=== PATIENT | male | born 1975 | race African-American/Black ===

== ENCOUNTER 2021-03-28 22:34 | Inpatient (IN) | payer OTHER, SELFPAY ==
--- NOTE | ~2021-03-28 | XR_ITS ---
EXAMINATION: XR chest port-a-cath/central EXAM DATE: 03/30/2021 13:35 INDICATION: Dylon line placement. TECHNIQUE: Portable AP frontal chest x-ray was obtained. There is no prior study for comparison. FINDINGS: There is a right-sided IJ double lumen dialysis catheter, tip projecting over cavoatrial ju nction. The lungs are clear. There are no pleural effusions. Cardiac silhouette is prominent but ma gnified on this AP technique. There is no pneumothorax suspected. The bones and soft tissues are u nremarkable. IMPRESSION: No acute cardiopulmonary findings. Reviewed, dictated and finalized at location B.
--- NOTE | ~2021-03-28 | US_ITS ---
EXAMINATION: US renal BI EXAM DATE: 03/30/2021 16:34 INDICATION: Elevated creatinine. TECHNIQUE: Multiple grayscale and Doppler images of the kidneys were obtained (by a technologist who performed the scan) and subsequently reviewed. There is no prior study for comparison. FINDINGS: Incidental note made of hepatic steatosis. Right kidney: There is normal contour and echogenicity. It measures 11.0 x 5.8 x 5.1 centimeters. T here are no focal renal lesions identified. There is no hydronephrosis. Left kidney: There is normal contour and echogenicity. It measures 11.7 x 6.0 x 5.7 centimeters. Th ere are no focal renal lesions identified. There is no hydronephrosis. Bladder unremarkable. IMPRESSION: 1. Sonographically unremarkable kidneys. 2. Hepatic steatosis. Reviewed, dictated and finalized at location B.
[2021-03-28 22:43] VITALS: BP 192/108; PULSE 120; RESP 22; TEMP 36.5; O2SAT 95
[2021-03-28 22:47] LABS: Glucose Point of Care > 500 mg/dl (65-105)
--- NOTE | 2021-03-28 22:47 | ECG_ITS ---
Measurements Intervals [place] Rate: 117 P: 49 NH: 124 QRS: 36 QRSD: 98 T: -80 QT: 323 QTc: 451 Interpretive Statements SINUS TACHYCARDIA LEFT VENTRICULAR HYPERTROPHY AND ST-T CHANGE ST-T WAVE ABNORMALITY IN INFERIOR LEADS- CONSIDER ISCHEMIA ABNORMAL ECG Electronically Signed On 03-29-2021 6:57:20 CDT by Sai Grove D.O.
[2021-03-28] MEDS: INSULIN HUMAN REGULAR (*BKC) 100 UNITS/ML 12 UNITS IV PUSH (23:08)
[2021-03-28] MEDS: SODIUM CHLORIDE 0.9% IV 1,000 ML 150 ML IV CONT (23:09)
[2021-03-28 23:18] LABS: Add Urine Microscopic? YES; Appearance Urine Clear (Clear); Bilirubin Urine Negative (Negative); Blood Urine Negative (Negative); Color Urine Colorless (Yellow); Glucose Urine UA 3+ mg/dL (Negative); Ketones Urine Negative (Negative); Leukocyte Esterase Ur Negative LEU/UL (Negative); Mucus Urine Rare /lpf; Nitrate Urine Negative (Negative); Protein Urine Negative (Negative); Specific Grav Ur 1.021 (1.001-1.035); Urobilinogen Urine Negative mg/dL (<2.0); WBC Urine 0-3 /hpf
[2021-03-28 23:22] LABS: Basophils Percent Auto 0.8 % (0.2-1.2); Eosinophils Absolute Auto 0.1 K/mm3 (0-0.3); Hematocrit 37.4 % (42.0-52.0); Hemoglobin 13.6 g/dL (14.0-18.0); Immature Granulocyte Absolute 0.02 K/mm3 (0.00-0.031); Immature Granulocyte Percent A 0.4 % (0-0.5); Lymphocytes Absolute Auto 0.99 K/mm3 (0.9-3.2); Lymphocytes Percent Auto 19.3 % (18.3-44.2); Mean Corpuscular HGB Conc 36.4 g/dl (32-36); Mean Corpuscular Hemoglobin 29.7 pg (26-34); Mean Corpuscular Volume 81.7 fl (80-100); Mean Platelet Volume 10.9 fl (7.4-10.4); Monocytes Absolute Auto 0.3 K/mm3 (0.1-0.6); Monocytes Percent Auto 6.3 % (2.6-8.5); Neutrophils Absolute Auto 3.7 K/mm3 (1.3-6.7); Neutrophils Percent Auto 72.2 % (45.5-73.1); Platelet Count Result 325 k/mm3 (150-375); Red Blood Count 4.58 M/mm3 (4.6-6.20); Red Cell Distribution Width 14.5 % (11.5-14.5); White Blood Count 5.1 K/mm3 (4.5-10.0)
[2021-03-28 23:25] LABS: Hemoglobin A1C 11.7 % (<5.7)
[2021-03-28 23:38] VITALS: BP 161/90; PULSE 121; RESP 25; O2SAT 96
[2021-03-28] MEDS: LABETALOL HCL INJ 100 MG/20 ML VIAL 20 MG IV PUSH (23:40)
[2021-03-28 23:50] VITALS: BP 143/77; PULSE 102; RESP 19; O2SAT 96
[2021-03-28 23:54] LABS: Alveolar/Arterial O2 Gradient 40.8 mmHg; Base Excess ABG -1.8 mEq/l (+/-2.0); Fractional Inspired Oxygen 21 %; HCO3 ABG 23.2 mEq/l (22.0-26.0); Oxygen Content ABG 17.7 %vol (16.0-22.0); Oxygen Saturation ABG 90.6 % (95.0-100.0); Oxyhemoglobin 91.1 % THb (90.0-100.0); PCO2 ABG 40.6 mmHg (35.0-45.0); PO2 ABG 60.3 mmHg (80.0-100.0); PO2 FiO2 Ratio Arterial Blood 2.87 %; Total Hemoglobin 13.8 g/dL (12.0-18.0); pH ABG 7.375 (7.350-7.450)
[2021-03-28 23:58] LABS: Device ROOM AIR; Modified Allen's Test Pass; Site Drawn LEFT RADIAL
[2021-03-29] VITALS (21 sets, daily range): BP systolic 121–204; BP diastolic 72–117; PULSE 77–104; RESP 16–26; TEMP 36.7–37.4; O2SAT 96–100; BMI 39.6
[2021-03-29 00:15] LABS: Alanine Aminotransferase 33 U/L (4-50); Albumin Level 4.1 g/dL (3.5-5.1); Alkaline Phosphatase 131 U/L (38-126); Anion Gap 17 mmol/L (8-16); Aspartate Amino Transferase 30 U/L (17-59); Blood Urea Nitrogen 27 mg/dL (9-20); Calcium 9.5 mg/dL (8.4-10.2); Carbon Dioxide 19 mmol/L (22-30); Chloride 90 mmol/L (98-107); Estimated CRCL calculation 64 ml/min; Estimated Glomerular Filt Rate 54; Potassium 5.5 mmol/L (3.4-5.0); Sodium 126 mmol/L (137-145)
[2021-03-29 00:24] LABS: Glucose Point of Care > 500 mg/dl (65-105)
[2021-03-29 00:29] LABS: Glucose 967 mg/dL (75-110)
--- NOTE | 2021-03-29 00:32 | ED.GENADULT ---
HPI - General Adult General Chief complaint: Recheck/Abnormal Lab/Rx Stated complaint: high blood sugar Time Seen by Provider: 03/28/21 22:43 Source: patient and family Mode of arrival: ambulatory Limitations: no limitations History of Present Illness HPI narrative: 45-year-old here with complaints of marked weakness for past 2 weeks. He complains of increased thirst, urinating frequently. And loss of appetite. He states that he checked his blood sugar at home was found to be high. mentions that he is scheduled to see her primary doctor tomorrow. Patient has not seen in provider for last several years. Onset (ago): week(s) (2) Exacerbating factors: none Associated symptoms: loss of appetite and malaise Treatments prior to arrival: none Related Data Home Medications Medication Instructions Recorded Confirmed No Home Medications 03/28/21 Allergies Allergy/AdvReac Type Severity Reaction Status Date / Time Penicillins Allergy Fever Verified 03/28/21 23:08 Review of Systems Review of Systems: All systems reviewed & are unremarkable except as noted in HPI and below Constitutional: Constitutional: Reports no additional constitutional complaints Eyes: Eyes: Reports no additional eye complaints ENT: Reports system reviewed and no additional complaints, except as documented Cardiovascular: Cardiovascular: Reports no additional cardiovascular complaints Respiratory: Respiratory: Reports no additional respiratory complaints Gastrointestinal: Gastrointestinal: Reports no additional gastrointestinal complaints Musculoskeletal: Musculoskeletal: Reports no additional musculoskeletal complaints Neurologic: Reports system reviewed and no additional complaints, except as documented Exam Narrative: Exam Narrative: GENERAL: Well-appearing, well-nourished, and in no acute distress. HEAD: Normocephalic, atraumatic. EYES: PERRLA and EOMI. NECK: Supple. CHEST: Clear to auscultation. No respiratory distress. HEART: Regular rate and rhythm. No murmur heard. Normal peripheral pulses. ABDOMEN: Soft, nontender, nondistended, normal active bowel sounds. EXTREMITIES: Normal range of motion. No edema. SKIN: Warm, dry, no rash. NEURO: No focal deficits. Alert and oriented x3. PSYCH: Normal mood and affect. Course Course Emergency Course: Patient has found to have a high blood sugar here in the emergency room I have given him initial 12 units of IV insulin push started him on fluids however his blood pressure was significantly elevated I have given labetalol 10 mg IV which brought his pressure and heart rate. I discussed labs with the patient and the family. Will admit to the intensive care unit. Discussed with Dr. Jaimes agreed to admit. Vital Signs Vital signs: Vital Signs Temperature 36.5 C 03/28/21 22:43 Pulse Rate 120 H 03/28/21 22:43 Respiratory Rate 22 H 03/28/21 22:43 Blood Pressure 192/108 H 03/28/21 22:43 Pulse Oximetry 95 03/28/21 22:43 Temperature 36.5 C 03/28/21 22:43 Pulse Rate 102 H 03/28/21 23:50 Respiratory Rate 19 03/28/21 23:50 Blood Pressure 143/77 H 03/28/21 23:50 Pulse Oximetry 96 03/28/21 23:50 Medical Decision Making Vital Signs Vital Signs: Vital Signs Temperature 36.5 C 03/28/21 22:43 Pulse Rate 120 H 03/28/21 22:43 Respiratory Rate 22 H 03/28/21 22:43 Blood Pressure 192/108 H 03/28/21 22:43 Pulse Oximetry 95 03/28/21 22:43 Temperature 36.5 C 03/28/21 22:43 Pulse Rate 102 H 03/28/21 23:50 Respiratory Rate 19 03/28/21 23:50 Blood Pressure 143/77 H 03/28/21 23:50 Pulse Oximetry 96 03/28/21 23:50 Lab Data Result diagrams: 03/28/21 22:56 03/28/21 23:47 Labs: Lab Results 03/28/21 03/28/21 03/28/21 Range/Units 22:45 22:56 22:56 WBC (4.5-10.0) K/mm3 RBC (4.6-6.20) M/mm3 Hgb (14.0-18.0) g/dL Hct (42.0-52.0) % MCV (80-100) fl MCH (26-34) pg MCHC (32-36)
[2021-03-29 00:47] LABS: Beta-Hydroxybutyrate/Acetoacetate 0.91 mmol/L (0.02-0.27)
[2021-03-29] MEDS: INSULIN HUMAN REGULAR (*BKC) 100 UNITS in SODIUM CHLORIDE 0.9% IV 99 ML 18.1 UNITS IV CONT (01:10)
[2021-03-29] MEDS: SODIUM CHLORIDE 0.9% IV 1,000 ML 999 ML IV CONT ×3 (01:19→21:46)
--- NOTE | 2021-03-29 01:45 | ADMGEN ---
This patient, Rico Brar, was admitted to Intensive Care Unit-8. Patient/family oriented to hospital policies and general routines including ID bracelet, bed and alarms, visiting hours, pain management, procedures, bathroom and other care routines, personal items, smoking policy, room service/diet, and visiting hours. Information on how to activate the Rapid Response Team has been discussed. Patient/Family are encouraged to report perceived risks to care and to ask questions if they do not understand what they are told or what they should do.
--- NOTE | 2021-03-29 02:15 | PM.IMHP ---
H&P: HPI History of Present Illness Date/Time: 03/29/21 03:00 Chief Complaint: elevated blood sugar Narrative: 45-year-old male with past medical history of obesity, and hypertension who presented to the ER after a checked his sugars as outpatient and they were found to be high. He reports that he has been having about 10 days of increased urination, fatigue, and severe dry mouth. This been accompanied by some blurry vision And loss of appetite. He reports that he cannot get enough fluid to drink. He has been drinking water and Gatorade. He does not have diabetes but borrowed a glucometer and his glucoses read as high on the monitor. He subsequently came into the ER for evaluation. He reports that he has not seen a primary care physician in several years. He had an appointment tomorrow for a new patient appointment. he had not seen a doctor in several years. The last brigette solid doctor was for a follow-up appointment high blood pressure. He has not been taking any antihypertensives at home. When he arrived to the ER his blood pressures were markedly elevated to 192/108. He has a significant family history of diabetes on both sides of his family. He has been obese for quite some time. He reports that his weight is usually around 275 lb. Today he weighed about 10 lb less than usual. He thinks that this is due to dehydration. He has not had any nausea or vomiting. He denies any headache . He has not had any nausea or vomiting. He does report occasional intermittent chest pain that occurs usually while he is at rest. The chest pain has not occurred in the last several weeks. The pain is usually relieved when he gets up and moves. He thinks that the pain usually occurs after he eats. he has had increased urinary frequency but denies any dysuria or hematuria. He does have occasional erectile dysfunction. He has been having some intermittent loose stools over recent weeks. He denies any numbness, tingling or paresthesias of his hands and feet. His girlfriend does tell him that he snores quite loudly and that he will often stop breathing and gasps for air at night. He denies any daytime fatigue or sleepiness. He has not noticed any lower extremity swelling, orthopnea or paroxysmal nocturnal dyspnea. He has not had any cough or congestion or upper respiratory symptoms. Patient's blood pressures improved after he received 20 mg of IV labetalol. Review of Systems Review of Systems: Narrative: 12 systems were reviewed with pertinent positives and negatives per HPI. Except as documented in the HPI, all other systems were reviewed and are negative. [facility] Past Medical History Medical History (Updated 03/29/21 @ 04:10 by Kitty Jaimes DO) Essential hypertension Obesity Surgical History Surgical History (Updated 03/29/21 @ 04:10 by Kitty Jaimes DO) History of laparoscopic cholecystectomy (~2004) Family History Family History (Updated 03/29/21 @ 04:11 by Kitty Jaimes DO) Mother , age 69 Hypertension Cerebrovascular accident Father Hypertension Diabetes mellitus Heart disease Leukemia, Onset Age: 68 of a heart attack as a complication of leukemia treatment. Social History Social History (Updated 03/29/21 @ 04:33 by Kitty Jaimes DO) Social History: He lives in [place] with his long-term girlfriend. They have 2 children together ages 14 and 15. Has has a stepchild. 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 He rarely drinks alcohol. He is a lifelong nonsmoker. He denies any illicit substance use. Smoking status: Never smoker Alcohol intake: former Substance use: never Spiritual care concerns: No Meds Home Medications and Allergies Home Medications Medication Instructions Recorded Confirmed Type acetaminophen 650 mg PO Q4H PRN 03/29/21 03/29/21 History ibuprofen 200 mg PO Q6H PRN 03/29/21 03/29/21 History Allergies Allergy/AdvReac Type Torie
[2021-03-29] MEDS: SODIUM CHLORIDE 0.9% IV 1,000 ML 125 ML IV CONT (02:19)
[2021-03-29 02:34] LABS: Glucose Point of Care > 500 mg/dl (65-105)
[2021-03-29 03:06] LABS: Magnesium 2.2 mg/dL (1.6-2.3); Phosphorus 3.1 mg/dL (2.5-4.5)
[2021-03-29 03:14] LABS: Glucose 609 mg/dL (75-110)
[2021-03-29] MEDS: ONDANSETRON INJ 4 MG/2 ML VIAL IV PUSH (04:53)
[2021-03-29 05:30] LABS: Glucose Point of Care 263 mg/dl (65-105)
[2021-03-29 06:04] LABS: Glucose Point of Care 392 mg/dl (65-105)
[2021-03-29 06:28] LABS: Glucose Point of Care 197 mg/dl (65-105)
[2021-03-29] MEDS: KCL 20 MEQ/D5/0.45% SOD CHL 1,000 ML 150 ML IV CONT ×3 (06:28→20:57)
[2021-03-29] MEDS: INSULIN HUMAN REGULAR (*BKC) 100 UNITS in SODIUM CHLORIDE 0.9% IV 99 ML 8.2 UNITS IV CONT (06:28)
[2021-03-29 06:29] LABS: Anion Gap 11 mmol/L (8-16); Blood Urea Nitrogen 29 mg/dL (9-20); Calcium 9.2 mg/dL (8.4-10.2); Carbon Dioxide 20 mmol/L (22-30); Chloride 111 mmol/L (98-107); Estimated CRCL calculation 49 ml/min; Estimated Glomerular Filt Rate 40; Glucose 210 mg/dL (75-110); Potassium 4.4 mmol/L (3.4-5.0); Sodium 142 mmol/L (137-145)
[2021-03-29 07:07] LABS: HDL Direct 20 mg/dL
[2021-03-29 07:21] LABS: Glucose Point of Care 209 mg/dl (65-105)
[2021-03-29 08:08] LABS: LDL Cholesterol Direct 41 mg/dL
[2021-03-29 08:09] LABS: Cholesterol 363 mg/dL (0-200); Triglycerides > 2625 mg/dL (<150)
[2021-03-29 08:19] LABS: Glucose Point of Care 183 mg/dl (65-105)
[2021-03-29] MEDS: ENOXAPARIN 40 MG/0.4 ML SYRINGE SUB-Q (08:40)
[2021-03-29 09:24] LABS: Glucose Point of Care 186 mg/dl (65-105)
[2021-03-29 09:30] LABS: Basophils Percent Auto 0.3 % (0.2-1.2); Eosinophils Absolute Auto 0.2 K/mm3 (0-0.3); Eosinophils Percent Auto 2.5 % (0-4.4); Hematocrit 36.6 % (42.0-52.0); Hemoglobin 12.8 g/dL (14.0-18.0); Immature Granulocyte Absolute 0.03 K/mm3 (0.00-0.031); Immature Granulocyte Percent A 0.5 % (0-0.5); Lymphocytes Absolute Auto 1.52 K/mm3 (0.9-3.2); Lymphocytes Percent Auto 25.2 % (18.3-44.2); Mean Corpuscular Volume 82.8 fl (80-100); Mean Platelet Volume 10.5 fl (7.4-10.4); Monocytes Absolute Auto 0.5 K/mm3 (0.1-0.6); Monocytes Percent Auto 8.4 % (2.6-8.5); Neutrophils Absolute Auto 3.8 K/mm3 (1.3-6.7); Neutrophils Percent Auto 63.1 % (45.5-73.1); Platelet Count Result 306 k/mm3 (150-375); Red Blood Count 4.42 M/mm3 (4.6-6.20); Red Cell Distribution Width 14.7 % (11.5-14.5)
[2021-03-29 09:30] LABS: Anion Gap 13 mmol/L (8-16); Blood Urea Nitrogen 27 mg/dL (9-20); Calcium 9.3 mg/dL (8.4-10.2); Carbon Dioxide 21 mmol/L (22-30); Chloride 109 mmol/L (98-107); Estimated CRCL calculation 54 ml/min; Estimated Glomerular Filt Rate 44; Glucose 175 mg/dL (75-110); Potassium 4.5 mmol/L (3.4-5.0); Sodium 143 mmol/L (137-145)
--- NOTE | 2021-03-29 09:39 | WPDCNINT ---
Assessment and Plan Assessment and plan (1) DKA (diabetic ketoacidosis): Qualifiers: Diabetes mellitus complication detail: without coma Diabetes mellitus type: type 2 Qualified Code(s): E11.10 - Type 2 diabetes mellitus with ketoacidosis without coma Code(s): E11.10 - Type 2 diabetes mellitus with ketoacidosis without coma Status: Acute Assessment and Plan: patient presented with elevated blood sugars, was found to have blood sugars of 967 in the ER with positive anion gap, positive beta hydroxybutyrate hyperkalemia and hyponatremia - given IV fluid bolus and started on insulin infusion. - Give additional IV fluid bolus this morning. - Continue insulin infusion and once anion gap closes will transition to long-acting insulin and sliding scale insulin (2) New onset type 2 diabetes mellitus: Code(s): E11.9 - Type 2 diabetes mellitus without complications Status: Acute Assessment and Plan: new onset diabetes presented with DKA - hemoglobin A1c this admission is 11.7 - will have early childhood educator aide and dietitian evaluate the patient (3) Hypertension, uncontrolled: Code(s): I10 - Essential (primary) hypertension Status: Acute Assessment and Plan: uncontrolled hypertension likely related to not following up with his primary care doctor - patient on p.r.n. hydralazine - Added amlodipine (4) DVT prophylaxis: Code(s): Z29.9 - Encounter for prophylactic measures, unspecified Status: Acute Assessment and Plan: Lovenox Additional Plan discussed with patient updated with his condition and plan of care. He is aware that once his anion gap closes he will be transition to long-acting insulin and sliding scale insulin and his insulin drip but be turned off. Code status: Full code Critical care time spent: 43 minutes This dictation may have been done utilizing a voice recognition system. Attempts have been made to correct errors. However, there may be uncorrected grammatical, spelling, and recognition errors present. Due to a high probability of clinically significant, life threatening deterioration, the patient required my highest level of preparedness to intervene emergently and I personally spent this critical care time directly and personally managing the patient. This critical care time included obtaining a history; examining the patient; pulse oximetry; ordering and review of studies; arranging urgent treatment with development of a management plan; evaluation of patient's response to treatment; frequent reassessment; and discussions with other providers. It was exclusive of separately billable procedures and treating other patients and teaching time. Please see Assessment and Plan section and the rest of the note for further information on patient assessment and treatment Visual Supervisor Consult Note Consult date: 03/29/21 Time Seen: 07:09 Reason for consult: diabetic ketoacidosis, nausea, polyuria, increased thirst HPI: Rico Brar is a 45 year old male past medical history of essential hypertension and obesity presented the ER on 03/29/2021 with complains of elevated blood sugars home. Patient stated that he has been having a lot of polyuria, dry mouth, increased urination, fatigue and loss of appetite for approximately 10 days. He was found to have elevated blood sugars in the along with malignant hypertension with with blood pressure 192/108. Patient was given labetalol which improved his blood pressures. In the ER patient's blood sugars were 967, anion gap of 17 with positive beta hydroxybutyrate, hyperkalemia and hyponatremia. Patient also was found to be in acute kidney injury. Patient was given 2 L IV fluids and started on insulin infusion and transferred to the ICU for further management patient seen examined this morning, still complains of being thirsty, oral mucosa is dry, ordered 1 L IV fluid bolus but patient has difficulty w
[2021-03-29 09:44] LABS: Lactic Acid Reflex 1.9 mmol/L (0.7-2.1)
[2021-03-29 09:46] LABS: Alanine Aminotransferase 30 U/L (4-50); Albumin Level 3.9 g/dL (3.5-5.1); Alkaline Phosphatase 81 U/L (38-126); Anion Gap 11 mmol/L (8-16); Aspartate Amino Transferase 33 U/L (17-59); Bilirubin,Total 0.6 mg/dL (0.2-1.3); Blood Urea Nitrogen 28 mg/dL (9-20); Calcium 9.3 mg/dL (8.4-10.2); Carbon Dioxide 22 mmol/L (22-30); Chloride 109 mmol/L (98-107); Estimated CRCL calculation 57 ml/min; Estimated Glomerular Filt Rate 47; Glucose 181 mg/dL (75-110); Lipase 99 U/L (23-300); Potassium 3.7 mmol/L (3.4-5.0); Sodium 142 mmol/L (137-145)
[2021-03-29 09:55] LABS: Troponin I 0.068 ng/mL (0.000-0.034)
[2021-03-29 10:26] LABS: Glucose Point of Care 294 mg/dl (65-105)
[2021-03-29 10:30] LABS: Triglycerides > 2625 mg/dL (<150)
[2021-03-29] MEDS: hydrALAZINE HCL 20 MG/ML VIAL 10 MG IV PUSH ×2 (10:48→20:07)
[2021-03-29 11:25] LABS: Glucose Point of Care 317 mg/dl (65-105)
[2021-03-29] MEDS: amLODIPine BESYLATE 5 MG TABLET PO (11:39)
[2021-03-29] MEDS: ACETAMINOPHEN 325 MG TABLET 650 MG PO (12:20)
[2021-03-29 12:26] LABS: Glucose Point of Care 271 mg/dl (65-105)
[2021-03-29 13:20] LABS: Glucose Point of Care 194 mg/dl (65-105)
[2021-03-29] MEDS: INSULIN HUMAN REGULAR (*BKC) 100 UNITS in SODIUM CHLORIDE 0.9% IV 99 ML 17.4 UNITS IV CONT (14:14)
[2021-03-29 14:19] LABS: Glucose Point of Care 141 mg/dl (65-105)
[2021-03-29 15:17] LABS: Glucose Point of Care 144 mg/dl (65-105)
[2021-03-29 16:25] LABS: Glucose Point of Care 130 mg/dl (65-105)
[2021-03-29 17:21] LABS: Glucose Point of Care 115 mg/dl (65-105)
[2021-03-29] MEDS: ACETAMINOPHEN 500 MG TABLET PO ×2 (17:24→23:45)
[2021-03-29 18:21] LABS: Glucose Point of Care 129 mg/dl (65-105)
--- NOTE | 2021-03-29 18:49 | PM.IMPN ---
Progress Note: A&P Assessment and Plan (1) New onset type 2 diabetes mellitus: Code(s): E11.9 - Type 2 diabetes mellitus without complications Status: Acute Assessment and Plan: will require insulin Diabetes Education Hemoglobin A1c 11.7 Will provide further recommendation once the patient is out of the ICU and on regular floors (2) DKA (diabetic ketoacidosis): Qualifiers: Diabetes mellitus complication detail: without coma Diabetes mellitus type: type 2 Qualified Code(s): E11.10 - Type 2 diabetes mellitus with ketoacidosis without coma Code(s): E11.10 - Type 2 diabetes mellitus with ketoacidosis without coma Status: Acute Assessment and Plan: patient being managed in the ICU on insulin drip to be followed gap closure (3) Essential hypertension: Code(s): I10 - Essential (primary) hypertension Status: Acute Assessment and Plan: patient reports that he was started on quinapril and amlodipine Patient started on amlodipine 5 mg q.a.m. given BRANDI will hold off on Cj inhibitors (4) BRANDI (acute kidney injury): Code(s): N17.9 - Acute kidney failure, unspecified Status: Acute Assessment and Plan: continue IV fluids continue to monitor (5) Elevated troponin: Code(s): R77.8 - Other specified abnormalities of plasma proteins Status: Acute Assessment and Plan: possibly secondary to demand ischemia EKG reviewed (6) Hypertriglyceridemia: Code(s): E78.1 - Pure hyperglyceridemia Status: Acute Assessment and Plan: noted to have severely elevated triglyceride levels ICU management Recommend continuing IV insulin until the levels of triglycerides are below 500 lipase within normal limits Given current levels of triglycerides, patient is at high risk of developing pancreatitis Will require gemfibrozil and statin therapy (7) Obesity (BMI 30-39.9): Code(s): E66.9 - Obesity, unspecified Status: Acute Assessment and Plan: advised regarding diet and exercise Subjective Date/time seen: 03/29/21 18:49 Interval history: stable Nausea resolved No abdominal pain Does not feel weak anymore Review of Systems Review of Systems: All systems reviewed & are unremarkable except as noted in HPI and below Exam Const: General: cooperative HENMT: Head: normal to inspection Ears: hearing grossly normal bilaterally Eyes: General: appearance normal, both eyes and all related structures Resp: Auscultation: clear to auscultation bilaterally Cardio: Jugular venous distension: no JVD Rate: regular rate Rhythm: regular rhythm and abnormal rhythm GI: Inspection: normal to inspection GI Palp: Yes Soft to palpation Percussion: Yes normal to percussion Auscultation: normal bowel sounds Back/Spine/Pelvis: Back: no CVA tenderness Skin: General skin exam: normal color Neuro: General: patient oriented x3, gait normal, tone normal and moves all extremities Extrem: General: normal to inspection Objective Data Vital Signs Vital Signs: Vital Signs - 24 hr 03/28/21 22:43 03/28/21 23:38 03/28/21 23:50 Temperature 97.7 F Pulse Rate 120 H 121 H 102 H Respiratory Rate 22 H 25 H 19 Blood Pressure 192/108 H 161/90 H 143/77 H Pulse Oximetry 95 96 96 03/29/21 00:05 03/29/21 00:59 03/29/21 02:00 Temperature 98.7 F Pulse Rate 102 H 103 H Respiratory Rate 20 22 H Blood Pressure 159/75 H 169/104 H Pulse Oximetry 96 99 99 03/29/21 03:20 03/29/21 03:45 03/29/21 03:47 Temperature 98.5 F Pulse Rate 104 H Respiratory Rate 20 Blood Pressure 151/106 H Pulse Oximetry 99 99 99 03/29/21 04:00 03/29/21 06:00 03/29/21 08:00 Temperature 98.0 F Pulse Rate 99 96 93 Respiratory Rate 25 H 18 Blood Pressure 139/72 150/95 H Pulse Oximetry 100 100 03/29/21 10:00 03/29/21 12:00 03/29/21 13:00 Temperature 98.0 F Pulse Rate 97 101 H Respiratory Rate 23 H
[2021-03-29 20:40] LABS: Troponin I 0.033 ng/mL (0.000-0.034)
[2021-03-29 20:50] LABS: Glucose Point of Care 147 mg/dl (65-105)
--- NOTE | 2021-03-29 21:17 | PC.NURSE ---
Called Dr. Quiroz at 2100 regarding patients high serum triglycerides and lipemic blood. BMP and serial troponins continue to be unsuccessfully resulted due to lipemic blood. Per Dr. Quiroz, orders to continue Insulin gtt., keep patient NPO, continue running fluids per protocol and draw serum BMP every four hours. Triglycerides will eventually resolve with Insulin gtt. therapy.
[2021-03-29 21:52] LABS: Glucose Point of Care 109 mg/dl (65-105)
[2021-03-29 22:41] LABS: Glucose Point of Care 101 mg/dl (65-105)
[2021-03-29] MEDS: FENOFIBRATE NANOCRYSTALLIZED 145 MG TABLET PO (23:07)
[2021-03-30] VITALS (16 sets, daily range): BP systolic 134–202; BP diastolic 74–114; PULSE 83–110; RESP 19–25; TEMP 36.5–37.1; O2SAT 98–100
[2021-03-30] MEDS: INSULIN HUMAN REGULAR (*BKC) 100 UNITS in SODIUM CHLORIDE 0.9% IV 99 ML 11.4 UNITS IV CONT (00:19)
[2021-03-30] MEDS: hydrALAZINE HCL 20 MG/ML VIAL 10 MG IV PUSH ×4 (00:27→16:20)
[2021-03-30] MEDS: KCL 20 MEQ/D5/0.45% SOD CHL 1,000 ML 150 ML IV CONT ×4 (03:40→22:30)
[2021-03-30 03:46] LABS: Glucose Point of Care 148 mg/dl (65-105)
[2021-03-30 03:46] LABS: Glucose Point of Care 149 mg/dl (65-105)
[2021-03-30 03:46] LABS: Glucose Point of Care 127 mg/dl (65-105)
[2021-03-30 03:46] LABS: Glucose Point of Care 148 mg/dl (65-105)
[2021-03-30 03:46] LABS: Glucose Point of Care 97 mg/dl (65-105)
[2021-03-30 04:54] LABS: Basophils Percent Auto 0.4 % (0.2-1.2); Eosinophils Absolute Auto 0.2 K/mm3 (0-0.3); Hematocrit 37.5 % (42.0-52.0); Hemoglobin 12.6 g/dL (14.0-18.0); Immature Granulocyte Absolute 0.03 K/mm3 (0.00-0.031); Immature Granulocyte Percent A 0.7 % (0-0.5); Lymphocytes Absolute Auto 1.23 K/mm3 (0.9-3.2); Lymphocytes Percent Auto 27.6 % (18.3-44.2); Mean Corpuscular HGB Conc 33.6 g/dl (32-36); Mean Corpuscular Hemoglobin 28.2 pg (26-34); Mean Corpuscular Volume 83.9 fl (80-100); Mean Platelet Volume 10.9 fl (7.4-10.4); Monocytes Absolute Auto 0.3 K/mm3 (0.1-0.6); Neutrophils Absolute Auto 2.7 K/mm3 (1.3-6.7); Neutrophils Percent Auto 60.3 % (45.5-73.1); Platelet Count Result 283 k/mm3 (150-375); Red Blood Count 4.47 M/mm3 (4.6-6.20); Red Cell Distribution Width 14.8 % (11.5-14.5); White Blood Count 4.5 K/mm3 (4.5-10.0)
[2021-03-30 05:31] LABS: Anion Gap 7 mmol/L (8-16); Blood Urea Nitrogen 14 mg/dL (9-20); Calcium 8.4 mg/dL (8.4-10.2); Carbon Dioxide 21 mmol/L (22-30); Chloride 113 mmol/L (98-107); Estimated CRCL calculation 76 ml/min; Estimated Glomerular Filt Rate > 60; Glucose 122 mg/dL (75-110); Potassium 2.9 mmol/L (3.4-5.0); Sodium 141 mmol/L (137-145)
[2021-03-30 05:50] LABS: Glucose Point of Care 125 mg/dl (65-105)
[2021-03-30 05:50] LABS: Glucose Point of Care 124 mg/dl (65-105)
[2021-03-30 05:50] LABS: Glucose Point of Care 124 mg/dl (65-105)
--- NOTE | 2021-03-30 06:31 | PCRCNOTE ---
apnea study was not completed due to the patient receiving nursing care q1h
[2021-03-30 06:45] LABS: Glucose Point of Care 111 mg/dl (65-105)
[2021-03-30] MEDS: ACETAMINOPHEN 500 MG TABLET PO (07:43)
[2021-03-30 07:51] LABS: Glucose Point of Care 119 mg/dl (65-105)
[2021-03-30] MEDS: POTASSIUM CHLORIDE 20 MEQ TABLET 40 MEQ PO ×2 (09:03→17:28)
[2021-03-30] MEDS: amLODIPine BESYLATE 5 MG TABLET 10 MG PO (09:04)
[2021-03-30] MEDS: ENOXAPARIN 40 MG/0.4 ML SYRINGE SUB-Q (09:04)
[2021-03-30] MEDS: POTASSIUM CHLORIDE 20 MEQ PACKET (FOR LIQUID) 80 MEQ PO (09:07)
[2021-03-30 09:53] LABS: Triglycerides > 2625 mg/dL (<150)
[2021-03-30 10:10] LABS: Glucose Point of Care 125 mg/dl (65-105)
[2021-03-30 10:10] LABS: Glucose Point of Care 127 mg/dl (65-105)
--- NOTE | 2021-03-30 10:58 | WPDINTPN ---
Progress Note: A&P Assessment and Plan (1) DKA (diabetic ketoacidosis): Qualifiers: Diabetes mellitus complication detail: without coma Diabetes mellitus type: type 2 Qualified Code(s): E11.10 - Type 2 diabetes mellitus with ketoacidosis without coma Code(s): E11.10 - Type 2 diabetes mellitus with ketoacidosis without coma Status: Acute Assessment and Plan: patient presented with elevated blood sugars, was found to have blood sugars of 967 in the ER with positive anion gap, positive beta hydroxybutyrate hyperkalemia and hyponatremia - patient remains on insulin infusion - anion gap is closed, continue insulin infusion for hypertriglyceridemia. - patient was given additional IV fluids overnight as his blood was lipemic (2) New onset type 2 diabetes mellitus: Code(s): E11.9 - Type 2 diabetes mellitus without complications Status: Acute Assessment and Plan: new onset diabetes presented with DKA - hemoglobin A1c this admission is 11.7 - childbirth educator and dietitian evaluate the patient (3) Hypertension, uncontrolled: Code(s): I10 - Essential (primary) hypertension Status: Acute Assessment and Plan: uncontrolled hypertension likely related to not following up with his primary care doctor - patient on p.r.n. hydralazine - increased amlodipine (4) Hypertriglyceridemia: Code(s): E78.1 - Pure hyperglyceridemia Status: Acute Assessment and Plan: significant hypertriglyceridemia trauma patient is at risk of developing pancreatitis - Continue insulin infusion - added fenofibrate - discussed with Nephrology, will do plasmapheresis (5) Elevated troponin: Code(s): R77.8 - Other specified abnormalities of plasma proteins Status: Acute Assessment and Plan: initial troponins were elevated but have normalized (6) BRANDI (acute kidney injury): Code(s): N17.9 - Acute kidney failure, unspecified Status: Acute Assessment and Plan: patient presented with acute kidney injury likely related to diabetic ketoacidosis, hypovolemia, may have a chronic component due to uncontrolled diabetes, control hypertension - urine output has been adequate, creatinine trending down. Continue to monitor urine output, electrolytes and renal function (7) DVT prophylaxis: Code(s): Z29.9 - Encounter for prophylactic measures, unspecified Status: Acute Assessment and Plan: Lovenox Additional Plan discussed with patient and his significant other 15 years, with him patient's condition and plan of care. They are aware that his triglyceride levels a very elevated and will require plasmapheresis. He is going to remain on insulin infusion and fenofibrate. I answered all questions. Both patient and the significant other were upset about patient being NPO, after my explanation they did understand. Will start him a clear liquids at this time discussed with Nephrology and hospitalist Code status: Full code Critical care time spent: 37 minutes This dictation may have been done utilizing a voice recognition system. Attempts have been made to correct errors. However, there may be uncorrected grammatical, spelling, and recognition errors present. Due to a high probability of clinically significant, life threatening deterioration, the patient required my highest level of preparedness to intervene emergently and I personally spent this critical care time directly and personally managing the patient. This critical care time included obtaining a history; examining the patient; pulse oximetry; ordering and review of studies; arranging urgent treatment with development of a management plan; evaluation of patient's response to treatment; frequent reassessment; and discussions with other providers. It was exclusive of separately billable procedures and treating other patients and teaching time. Please see Assessment and Plan section
--- NOTE | 2021-03-30 11:20 | PM.CNNEP ---
Assessment and Plan Assessment and plan (1) Hypertriglyceridemia: Code(s): E78.1 - Pure hyperglyceridemia Status: Acute Assessment and Plan: The patient has a very high triglyceride level. This is most likely a result of his diabetes, high carb diet, and obesity. He has been on an insulin drip but the triglyceride level still very high. He is a high risk of developing pancreatitis. I discussed plasmapheresis with the patient. We discussed the procedure the risks the benefits and the alternatives. He agrees to proceed with the procedure. I called the plasmapheresis nurse. She will do a 1 volume plasmapheresis today and we can recheck the triglyceride level tomorrow (2) BRANDI (acute kidney injury): Code(s): N17.9 - Acute kidney failure, unspecified Status: Acute Assessment and Plan: the patient has an elevated creatinine. Does have hypertension and now has diabetes he does not go to the doctor so he may have had diabetes for quite a long time. So could have damage to the kidneys from the diabetes and/or hypertension. He could have an acute component as well. Many with DKA will have an elevated creatinine just from the DKA itself. Also dehydration could cause the higher creatinine as well. He has been getting IV fluids and his DKA is resolved but his creatinine is still high so he might look for other causes as well. Consider rhabdomyolysis, obstruction, or other less likely causes likely Glomerulonephritis and interstitial nephritis. will check CPK, renal ultrasound, urine electrolytes and eosinophils,. Consider serology and immunofixation if things do not get better soon. (3) Loud snoring: Code(s): R06.83 - Snoring Status: Acute Assessment and Plan: The patient has loud snoring. Perhaps he should get an apnea link. (4) Essential hypertension: Code(s): I10 - Essential (primary) hypertension Status: Acute Assessment and Plan: His blood pressure was fairly high on admission. He has not been to a doctor in a long time so has not been taking blood pressure meds for a long time either. He was started on amlodipine today. We will see how this works. Down the line should be on an MOLLY-inhibitor or ARB. (5) New onset type 2 diabetes mellitus: Code(s): E11.9 - Type 2 diabetes mellitus without complications Status: Acute Assessment and Plan: The patient's sugars are improving. History of Present Illness Reason for Consult Consult date: 03/30/21 Chief Complaint Chief complaint: DKA History of Present Illness Narrative: Rico Is a very pleasant 45-year-old gentleman who has multiple medical problems including new onset diabetes with DKA, hypertension but does not take his medicine, newly found hypertriglyceridemia and obesity. the patient says he had been sick for a couple of weeks before he came in the hospital. He had generalized weakness, frequent urination, weight loss, and occasional headaches. He also had blurry vision. His girlfriend is trying to get him to come to the emergency room for several days and finally he came on the day of admission. He was evaluated and found to have very high blood sugars, anion gap metabolic acidosis, and elevated creatinine, hyperkalemia and high triglycerides. The patient was admitted to the ICU. He is placed on insulin drip. Sugars have come down nicely. Metabolic acidosis is resolved. His anion gap is down to normal. Continued on the insulin drip and triglycerides were repeated and they are still high above 2625 so renal consultation was requested for plasmapheresis. Patient still feels kind of blah but overall feels a little bit better. The patient says he does have a family history of diabetes, kidney disease. He does not smoke or drink. Review of Systems Constitutional: Constitutional: Reports no additional constitutional complaints Eyes:
[2021-03-30 11:30] LABS: Glucose Point of Care 147 mg/dl (65-105)
[2021-03-30 12:11] LABS: Prothrombin Time 12.8 Seconds (11.1-14.7)
[2021-03-30 12:12] LABS: Partial Thromboplastin Time 27.4 SECONDS (22.3-36.8)
[2021-03-30] MEDS: fentaNYL CITRATE INJ (*CRX) 100 MCG/2 ML VIAL 50 MCG IV PUSH (12:50)
[2021-03-30 12:52] LABS: Creatine Kinase 1156 U/L (55-170)
[2021-03-30] MEDS: INSULIN HUMAN REGULAR (*BKC) 100 UNITS in SODIUM CHLORIDE 0.9% IV 99 ML 8.9 UNITS IV CONT (14:01)
[2021-03-30 14:05] LABS: Glucose Point of Care 135 mg/dl (65-105)
[2021-03-30 14:05] LABS: Glucose Point of Care 134 mg/dl (65-105)
[2021-03-30] MEDS: LACTATED RINGERS 500 ML IVPB (14:10)
[2021-03-30] MEDS: CENTRAL LINE FLUSH 10 ML IV PUSH ×3 (14:12→21:23)
[2021-03-30 14:58] LABS: Creatinine Urine 200.4 mg/dL; Total Protein Urine Random 17 mg/dL; Ur Ttl Prot Creatinine Ratio 0.08 mg/mg (0-0.20)
[2021-03-30 15:23] LABS: Glucose Point of Care 137 mg/dl (65-105)
[2021-03-30 15:28] LABS: Sodium Urine Random 98 meq/L
[2021-03-30] MEDS: INSULIN HUMAN REGULAR (*BKC) 100 UNITS in SODIUM CHLORIDE 0.9% IV 99 ML 9.2 UNITS IV CONT (15:30)
[2021-03-30] MEDS: HYDROcodone/acetaminophen (*CRX) 5-325 MG TABLET 1 TAB PO ×2 (15:33→21:14)
[2021-03-30 16:19] LABS: Eosinophil Urine None Seen % (None Seen)
[2021-03-30 16:43] LABS: Glucose Point of Care 135 mg/dl (65-105)
[2021-03-30] MEDS: METOPROLOL TARTRATE 50 MG TAB PO ×2 (17:28→20:21)
--- NOTE | 2021-03-30 17:29 | PM.IMPN ---
Progress Note: A&P Assessment and Plan (1) Hypertriglyceridemia: Code(s): E78.1 - Pure hyperglyceridemia Status: Acute (2) Elevated troponin: Code(s): R77.8 - Other specified abnormalities of plasma proteins Status: Acute (3) Obesity (BMI 30-39.9): Code(s): E66.9 - Obesity, unspecified Status: Acute (4) BRANDI (acute kidney injury): Code(s): N17.9 - Acute kidney failure, unspecified Status: Acute (5) DVT prophylaxis: Code(s): Z29.9 - Encounter for prophylactic measures, unspecified Status: Acute (6) New onset type 2 diabetes mellitus: Code(s): E11.9 - Type 2 diabetes mellitus without complications Status: Acute (7) Loud snoring: Code(s): R06.83 - Snoring Status: Acute (8) Essential hypertension: Code(s): I10 - Essential (primary) hypertension Status: Acute (9) DKA (diabetic ketoacidosis): Qualifiers: Diabetes mellitus complication detail: without coma Diabetes mellitus type: type 2 Qualified Code(s): E11.10 - Type 2 diabetes mellitus with ketoacidosis without coma Code(s): E11.10 - Type 2 diabetes mellitus with ketoacidosis without coma Status: Acute (10) Hypertension, uncontrolled: Code(s): I10 - Essential (primary) hypertension Status: Acute Subjective Date/time seen: 03/30/21 17:29 Interval history: 45-year-old male with past medical history significant for hypertension and obesity presented with weakness and was found to have elevated blood glucose levels. He is being managed as a case of DKA a new onset type 2 diabetes mellitus With A1c elevated to 11.1. He has been managed in the ICU on insulin drip. He was also noted to have significantly elevated triglyceride levels which were not noted to be improving on insulin drip. Nephrology was brought on board and patient is now receiving plasmapheresis. In addition he is also noted to have a BRANDI with possible component of CKD for which Nephrology is on board and tests have been ordered. He is also noted to have uncontrolled hypertension for which he was on amlodipine 5 and quinapril 10 at home. Given his BRANDI is Lisinopril has been held in amlodipine has been increased to 10. this a.m. metoprolol has also been added by ICU sole layer hand. He may benefit from being started on hydralazine 25 t.i.d. During his stay he was also noted to have elevated troponin without any EKG changes. This was later seen to trend down. Review of Systems Review of Systems: All systems reviewed & are unremarkable except as noted in HPI and below Exam Const: General: cooperative HENMT: Head: normal to inspection Ears: hearing grossly normal bilaterally General nose exam: Normal external nose present Eyes: General: appearance normal, both eyes and all related structures Neck: Neck: normal visual inspection Chest: Chest palpation & inspection: normal inspection of the chest Resp: Effort & Inspection: normal respiratory effort Auscultation: clear to auscultation bilaterally Cardio: Jugular venous distension: no JVD Palpation: normal PMI Rate: regular rate Rhythm: regular rhythm Heart sounds: S1 normal heart sound present and S2 normal heart sound present GI: Inspection: normal to inspection GI Palp: Yes Soft to palpation and Yes No hepatosplenomegaly present Percussion: Yes normal to percussion Auscultation: normal bowel sounds : General: Yes bimanual renal exam normal bilaterally Back/Spine/Pelvis: Back: no CVA tenderness Skin: General skin exam: normal color, no rashes or lesions noted, elasticity normal and turgor normal Neuro: General: patient oriented x3, gait normal and tone normal Extrem: General: normal to inspection Right lower extremity: normal to inspection Psych: Appearance: grossly normal Objective Data Vital Signs Vital Signs: Vital Signs - 24 hr 03/29/21 18:00 03/29/21 20:00 03/29/21 20:06 Temperature 9
[2021-03-30 17:33] LABS: Glucose Point of Care 145 mg/dl (65-105)
--- NOTE | 2021-03-30 17:35 | PC.NURSE ---
CTA RN to bedside.
[2021-03-30] MEDS: SODIUM CHLORIDE 0.9% IV 1,000 ML 100 ML IV CONT (18:20)
[2021-03-30] MEDS: HEPARIN SODIUM, PORCINE 10,000 UNITS/10 ML VIAL 10000 UNITS IV PUSH (18:20)
[2021-03-30] MEDS: CALCIUM GLUC 2,000 MG/NS 100ML 2,000 MG/100 ML BAG 100 MG IVPB (18:20)
[2021-03-30] MEDS: FENOFIBRATE NANOCRYSTALLIZED 145 MG TABLET PO (20:21)
--- NOTE | 2021-03-30 20:39 | PC.NURSE ---
Spoke with JEISON Connolly at 2009 p.m. Plasmapheresis treatment finished and patient tolerated well. Will continue to closely monitor patient.
[2021-03-30 21:36] LABS: Glucose Point of Care 125 mg/dl (65-105)
[2021-03-30 21:36] LABS: Glucose Point of Care 121 mg/dl (65-105)
--- NOTE | 2021-03-30 23:21 | PC.NURSE ---
1820 medications scanned in for plasmapheresis nurse JEISON Connolly. Cathleen does not have access to [facility] to document administration of medications. All medications handled and administered by JEISON Connolly regarding plasmapheresis treatment.
[2021-03-31] VITALS (15 sets, daily range): BP systolic 133–182; BP diastolic 68–91; PULSE 55–116; RESP 18–25; TEMP 36.5–36.9; O2SAT 24–100
--- NOTE | 2021-03-31 | ECHO_ITS ---
Patient Info Name: Rico Brar Age: 45 years : 1975 Gender: Male Ht: 68 in Wt: 279 lbs BSA: 2.53 m2 HR: 88 bpm BP: 134 / 75 mmHg Heart Rhythm: Sinus Rhythm Technical Quality: Fair Exam Date: 03/31/2021 2:07 PM Exam Location: [facility] Pulmonary Patient Status: Inpatient Admit Date: 03/29/2021 Staff Ordering Physician: Suha Quiroz MD Upper Leather Cutter: Zarina Smith RDCS Attending Provider: Angelica Orellana MD Referring Physician: Richie PALACIOS; Exam Type: CA echo dop color flow w con Study Info Complete two-dimensional, color flow and Doppler transthoracic echocardiogram is performed with contrast to opacify the left ventricle and to improve the deliniation of the left ventricle endocardial borders. Contrast/Agitated Saline Contrast/Ag. Saline: Definity Amount: 4.00 ml Summary 1. Left ventricular chamber dimension is mildly enlarged. 2. Left ventricular systolic function is normal, estimated at 65-70%. 3. There is severely increased left ventricular wall thickness. 4. The left ventricular diastolic function is grade II diastolic dysfunction. 5. There is mild mitral valve regurgitation. 6. There is mild pulmonic regurgitation. Left Ventricle Left ventricular chamber dimension is mildly enlarged. Left ventricular systolic function is normal, estimated at 65-70%. There is severely increased left ventricular wall thickness. The left ventricular diastolic function is grade II diastolic dysfunction. Right Ventricle Right ventricular chamber dimension is normal. Right ventricular systolic function is normal. Left Atria Left atrial chamber dimension is normal. Right Atria Right atrial chamber dimension is normal. Atrial Septum Intact interatrial septum visualized by color flow imaging. Aortic Valve The aortic valve is trileaflet. There is mild aortic valve sclerosis. There is no aortic valve stenosis. There is trace aortic valve regurgitation. Pulmonic Valve The pulmonic valve is normal. There is no pulmonic valve stenosis. There is mild pulmonic regurgitation. Mitral Valve The mitral valve has normal leaflets. There is no mitral valve stenosis. There is mild mitral valve regurgitation. Tricuspid Valve The tricuspid valve leaflets are normal. There is no significant tricuspid valve stenosis. There is trace tricuspid valve regurgitation. No pulmonary hypertension, estimated pulmonary arterial systolic pressure is 32 mmHg. Pericardium/Pleural The pericardium appears normal. There is no pericardial effusion. Aorta The aortic root size at the sinus of Valsalva is normal. Left Ventricular Outflow Tract Name Value Normal LVOT 2D LVOT Diameter 2.20 cm LVOT Doppler LVOT Peak Gradient 5 mmHg LVOT Mean Gradient 2 mmHg LVOT VTI 18.33 cm LVOT VTI/AV VTI Ratio 0.70 LVOT Stroke Volume 69.81 ml LVOT CO 4.80 l/min LVOT CI
[2021-03-31] MEDS: INSULIN HUMAN REGULAR (*BKC) 100 UNITS in SODIUM CHLORIDE 0.9% IV 99 ML 7.1 UNITS IV CONT (01:53)
[2021-03-31] MEDS: HYDROcodone/acetaminophen (*CRX) 5-325 MG TABLET 1 TAB PO (04:17)
[2021-03-31 05:11] LABS: Glucose Point of Care 120 mg/dl (65-105)
[2021-03-31 05:11] LABS: Glucose Point of Care 108 mg/dl (65-105)
[2021-03-31 05:11] LABS: Glucose Point of Care 137 mg/dl (65-105)
[2021-03-31 05:11] LABS: Glucose Point of Care 132 mg/dl (65-105)
[2021-03-31 05:11] LABS: Glucose Point of Care 119 mg/dl (65-105)
[2021-03-31 05:11] LABS: Glucose Point of Care 143 mg/dl (65-105)
[2021-03-31 05:11] LABS: Glucose Point of Care 107 mg/dl (65-105)
[2021-03-31] MEDS: KCL 20 MEQ/D5/0.45% SOD CHL 1,000 ML 150 ML IV CONT (05:15)
[2021-03-31] MEDS: CENTRAL LINE FLUSH 10 ML IV PUSH ×3 (05:20→20:32)
[2021-03-31 05:43] LABS: Hematocrit 35.8 % (42.0-52.0); Hemoglobin 11.8 g/dL (14.0-18.0); Mean Corpuscular Hemoglobin 27.4 pg (26-34); Mean Corpuscular Volume 83.1 fl (80-100); Platelet Count Result 249 k/mm3 (150-375); Red Blood Count 4.31 M/mm3 (4.6-6.20); Red Cell Distribution Width 15.1 % (11.5-14.5); White Blood Count 4.7 K/mm3 (4.5-10.0)
[2021-03-31 06:32] LABS: Alanine Aminotransferase 24 U/L (4-50); Albumin Level 3.4 g/dL (3.5-5.1); Alkaline Phosphatase 29 U/L (38-126); Anion Gap 8 mmol/L (8-16); Aspartate Amino Transferase 39 U/L (17-59); Bilirubin,Total 0.8 mg/dL (0.2-1.3); Blood Urea Nitrogen 6 mg/dL (9-20); Calcium 8.3 mg/dL (8.4-10.2); Carbon Dioxide 20 mmol/L (22-30); Chloride 112 mmol/L (98-107); Estimated CRCL calculation 83 ml/min; Estimated Glomerular Filt Rate > 60; Glucose 119 mg/dL (75-110); Lipase 71 U/L (23-300); Magnesium 1.7 mg/dL (1.6-2.3); Phosphorus 2.8 mg/dL (2.5-4.5); Potassium 3.6 mmol/L (3.4-5.0); Sodium 140 mmol/L (137-145)
[2021-03-31 06:35] LABS: Triglycerides 802 mg/dL (<150)
[2021-03-31 06:43] LABS: Glucose Point of Care 115 mg/dl (65-105)
[2021-03-31 07:50] LABS: Glucose Point of Care 120 mg/dl (65-105)
[2021-03-31 07:50] LABS: Glucose Point of Care 109 mg/dl (65-105)
[2021-03-31] MEDS: INSULIN GLARGINE (*BKC) 100 UNITS/ML 40 UNITS SUB-Q (08:45)
[2021-03-31] MEDS: amLODIPine BESYLATE 5 MG TABLET 10 MG PO (08:47)
[2021-03-31] MEDS: POTASSIUM CHLORIDE 20 MEQ TABLET 40 MEQ PO ×2 (08:48→17:01)
[2021-03-31] MEDS: ENOXAPARIN 40 MG/0.4 ML SYRINGE SUB-Q (08:49)
[2021-03-31 08:54] LABS: Glucose Point of Care 126 mg/dl (65-105)
--- NOTE | 2021-03-31 08:58 | PM.PNNEP ---
Progress Note: A&P Assessment and Plan (1) Hypertriglyceridemia: Code(s): E78.1 - Pure hyperglyceridemia Status: Acute Assessment and Plan: The patient has a very high triglyceride level. This is most likely a result of his diabetes, high carb diet, and obesity. he is still on an insulin drip and this is being converted to subcu insulin. He had plasmapheresis yesterday and triglyceride levels down to around 800. Will hold off on more plasmapheresis for now. Repeat triglyceride tomorrow (2) BRANDI (acute kidney injury): Code(s): N17.9 - Acute kidney failure, unspecified Status: Acute Assessment and Plan: the patient had an elevated creatinine. Urine electrolytes are non pre renal urine eosinophils are negative UA is bland ultrasound is normal creatinine is down to normal now. (3) Loud snoring: Code(s): R06.83 - Snoring Status: Acute Assessment and Plan: The patient has loud snoring. Perhaps he should get an apnea link Once out of the ICU. (4) Essential hypertension: Code(s): I10 - Essential (primary) hypertension Status: Acute Assessment and Plan: His blood pressure was fairly high on admission. Dr Richie price added some medications. I agree with Cj inhibitors down the line. (5) New onset type 2 diabetes mellitus: Code(s): E11.9 - Type 2 diabetes mellitus without complications Status: Acute Assessment and Plan: The patient's sugars are improving. Subjective Date/time seen: 03/31/21 08:58 Interval history: The patient is feeling better. No belly pain no chest pain or shortness of breath Review of Systems Cardiovascular: Cardiovascular: Reports no additional cardiovascular complaints Respiratory: Respiratory: Reports no additional respiratory complaints Gastrointestinal: Gastrointestinal: Reports no additional gastrointestinal complaints Genitourinary: Genitourinary: Reports no additional male genitourinary complaints Exam Narrative: Exam Narrative: WDWN in NAD skin no rash head ncat lungs clear cor reg no rub abd BS+ nontender and soft ext no edema. Objective Data Vital Signs Vital Signs: Vital Signs - 24 hr 03/30/21 10:00 03/30/21 12:00 03/30/21 14:00 Temperature 36.8 C Pulse Rate 103 H 100 104 H Respiratory Rate 19 19 20 Blood Pressure 153/86 H 151/88 H 179/110 H Pulse Oximetry 99 99 99 03/30/21 16:00 03/30/21 17:28 03/30/21 18:00 Temperature 36.5 C Pulse Rate 101 H 110 H 105 H Respiratory Rate 23 H 24 H Blood Pressure 202/74 H 161/81 H Pulse Oximetry 100 98 03/30/21 18:54 03/30/21 20:00 03/30/21 20:21 Temperature 36.6 C 37.0 C Pulse Rate 96 90 89 Respiratory Rate 21 H 25 H Blood Pressure 134/92 H Pulse Oximetry 100 100 03/30/21 22:00 03/31/21 00:00 03/31/21 02:00 Temperature 36.5 C Pulse Rate 83 91 92 Respiratory Rate 19 20 24 H Blood Pressure 137/76 133/72 154/71 H Pulse Oximetry 99 98 99 03/31/21 04:00 03/31/21 06:00 03/31/21 08:00 Temperature 36.9 C Pulse Rate 86 85 94 Respiratory Rate 25 H 20 Blood Pressure 153/68 H 134/75 Pulse Oximetry 98 98 Intake/Output Intake/Output: Intake & Output 03/28/21 03/29/21 03/30/21 03/31/21 23:59 23:59 23:59 23:59 Intake Total 4040 6128 1372 Output Total 1850 2050 500 Balance 2190 4078 872 Meds/Results Medications: Active Medications Generic Name Dose Route Start Last Admin Trade Name Freq PRN Reason Stop Dose Admin Acetaminophen 500 mg 03/29/21 11:38 03/30/21 07:43 Acetaminophen 500 Mg Tablet PO 500 mg Q6H PRN Administration Mild Pain (1-3) or Fever Hydrocodone Bitart/Acetaminophen 1 tab 03/30/21 20:45 03/31/21 04:17 Hydrocodone/Acetaminophen (*Crx) 5-325 Mg Tablet PO 1 tab Q6H PRN Administration Pain Rated 4-6 Amlodipine Besylate 10 mg 03/30/21 09:00 03/31/21 08:47 Amlodipine Besylate 5 Mg Table
[2021-03-31] MEDS: hydrALAZINE HCL 20 MG/ML VIAL IV PUSH ×2 (09:56→17:20)
[2021-03-31 10:04] LABS: Glucose Point of Care 124 mg/dl (65-105)
--- NOTE | 2021-03-31 10:51 | WPDINTPN ---
Progress Note: A&P Assessment and Plan (1) Hypertriglyceridemia: Code(s): E78.1 - Pure hyperglyceridemia Status: Acute Assessment and Plan: significant hypertriglyceridemia trauma patient is at risk of developing pancreatitis - Continue insulin infusion - continue fenofibrate - dialysis catheter was inserted on 03/30/2021, patient received his 1st treatment of plasmapheresis on 03/30/2021 - triglyceride levels 802 this morning - lipase is 71 - will continue to monitor triglyceride levels, if they trend, will do another treatment of plasmapheresis, discussed with Nephrology (2) DKA (diabetic ketoacidosis): Qualifiers: Diabetes mellitus complication detail: without coma Diabetes mellitus type: type 2 Qualified Code(s): E11.10 - Type 2 diabetes mellitus with ketoacidosis without coma Code(s): E11.10 - Type 2 diabetes mellitus with ketoacidosis without coma Status: Acute Assessment and Plan: patient presented with elevated blood sugars, was found to have blood sugars of 967 in the ER with positive anion gap, positive beta hydroxybutyrate hyperkalemia and hyponatremia - patient remains on insulin infusion - anion gap is closed, continue insulin infusion for hypertriglyceridemia. - will transition long-acting insulin Lantus and sliding scale insulin and Accu-Cheks - will start diabetic diet (3) New onset type 2 diabetes mellitus: Code(s): E11.9 - Type 2 diabetes mellitus without complications Status: Acute Assessment and Plan: new onset diabetes presented with DKA - hemoglobin A1c this admission is 11.7 - clinical trial educator and dietitian evaluate the patient (4) Hypertension, uncontrolled: Code(s): I10 - Essential (primary) hypertension Status: Acute Assessment and Plan: uncontrolled hypertension likely related to not following up with his primary care doctor - patient on p.r.n. hydralazine - increased amlodipine, metoprolol, (5) Elevated troponin: Code(s): R77.8 - Other specified abnormalities of plasma proteins Status: Acute Assessment and Plan: initial troponins were elevated but have normalized (6) BRANDI (acute kidney injury): Code(s): N17.9 - Acute kidney failure, unspecified Status: Acute Assessment and Plan: patient presented with acute kidney injury likely related to diabetic ketoacidosis, hypovolemia, may have a chronic component due to uncontrolled diabetes, control hypertension - urine output has been adequate, creatinine normalized. Continue to monitor urine output, electrolytes and renal function (7) DVT prophylaxis: Code(s): Z29.9 - Encounter for prophylactic measures, unspecified Status: Acute Assessment and Plan: Lovenox Additional Plan discussed with patient and significant other, updated with patient's condition plan of care. I answered all questions discussed with Nephrology and hospitalist Code status: Full code Critical care time spent: 32 minutes This dictation may have been done utilizing a voice recognition system. Attempts have been made to correct errors. However, there may be uncorrected grammatical, spelling, and recognition errors present. Due to a high probability of clinically significant, life threatening deterioration, the patient required my highest level of preparedness to intervene emergently and I personally spent this critical care time directly and personally managing the patient. This critical care time included obtaining a history; examining the patient; pulse oximetry; ordering and review of studies; arranging urgent treatment with development of a management plan; evaluation of patient's response to treatment; frequent reassessment; and discussions with other providers. It was exclusive of separately billable procedures and treating other patients and teaching time. Please see Assessment and Plan section and the rest of the no
[2021-03-31] MEDS: METOPROLOL TARTRATE 25 MG TABLET 75 MG PO ×2 (11:14→20:25)
[2021-03-31] MEDS: ATORVASTATIN 20 MG TABLET PO (11:15)
[2021-03-31 12:38] LABS: Glucose Point of Care 253 mg/dl (65-105)
[2021-03-31] MEDS: ACETAMINOPHEN 500 MG TABLET PO ×2 (12:43→18:25)
[2021-03-31] MEDS: INSULIN ASPART (*BKC) 100 UNITS/ML SUB-Q ×3 (12:45→21:50)
--- NOTE | 2021-03-31 14:46 | PM.IMPN ---
Progress Note: A&P Assessment and Plan (1) New onset type 2 diabetes mellitus: Code(s): E11.9 - Type 2 diabetes mellitus without complications Status: Acute Assessment and Plan: Diabetes Education Hemoglobin A1c 11.7 03/31 to medical floor on basal and SSI (2) Hypertriglyceridemia: Code(s): E78.1 - Pure hyperglyceridemia Status: Acute Assessment and Plan: Diabetic control Atorvastatin and fenofibrate Healthy diet Diabetic education Increase physical activity Control weight (3) Elevated troponin: Code(s): R77.8 - Other specified abnormalities of plasma proteins Status: Acute Assessment and Plan: possibly secondary to demand ischemia EKG w/o acute changes (4) Obesity (BMI 30-39.9): Code(s): E66.9 - Obesity, unspecified Status: Acute Assessment and Plan: As above (5) BRANDI (acute kidney injury): Code(s): N17.9 - Acute kidney failure, unspecified Status: Acute Assessment and Plan: Creatinine 1.3 on 03/31 (6) Essential hypertension: Code(s): I10 - Essential (primary) hypertension Status: Acute Assessment and Plan: patient reports that he was started on quinapril and amlodipine Patient started on amlodipine 5 mg q.a.m. given BRANDI will hold off on Cj inhibitors (7) DKA (diabetic ketoacidosis): Qualifiers: Diabetes mellitus complication detail: without coma Diabetes mellitus type: type 2 Qualified Code(s): E11.10 - Type 2 diabetes mellitus with ketoacidosis without coma Code(s): E11.10 - Type 2 diabetes mellitus with ketoacidosis without coma Status: Acute Assessment and Plan: Resolved (8) Loud snoring: Code(s): R06.83 - Snoring Status: Acute Assessment and Plan: NEREIDA vs UAWRS Subjective Date/time seen: 03/31/21 14:46 Interval history: 45-year-old male with past medical history significant for hypertension and obesity presented with weakness and was found to have elevated blood glucose levels. He is being managed as a case of DKA a new onset type 2 diabetes mellitus With A1c elevated to 11.1. He has been managed in the ICU on insulin drip that is now discontinued. He was also noted to have significantly elevated triglyceride levels which were not noted to be improving on insulin drip. Pilot Plant Operator 03/30 utilized plasmapheresis. In addition he is also noted to have a BRANDI with possible component of CKD. He is also noted to have uncontrolled hypertension for which he was on amlodipine 5 and quinapril 10 at home. Given his BRANDI is Lisinopril has been held in amlodipine has been increased to 10. this a.m. metoprolol has also been added by ICU embedded linux engineer. During his stay he was also noted to have elevated troponin without any EKG changes. This was later seen to trend down. 03/31: Off insuline drip this AM. Feels good. Tolerated diet. Denied cp, sob, edema, gi or gu issues. 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 Has fam hx DM2. Review of Systems Review of Systems: All systems reviewed & are unremarkable except as noted in HPI and below Exam Narrative: Exam Narrative: General: no acute distress, obese HEENT: mucous membranes are dry, crowded posterior oropharynx, large neck circumference, pupils are equal and reactive, head is normocephalic atraumatic Respiratory: clear to auscultation bilaterally, no increased work of breathing, intermittent tachypnea Cardiovascular: regular rhythm, normal S1-S2, no murmurs, 2+ bilateral radial pedal pulses Gastrointestinal: obese, nontender, distended, positive bowel sounds Skin: no jaundice, no pallor Musculoskeletal: no clubbing, cyanosis or edema, no foot wounds Neurological: alert and oriented, speech is clear, no facial asymmetry Psychiatric: appropriate mood and affect, cooperative Objective Data Vital Signs Vital Signs: Vital Signs - 24 hr 03/30/21 16:00 03/30/21 17:28 03/30/21 1
[2021-03-31] MEDS: metFORMIN HCL 500 MG TABLET PO (17:01)
[2021-03-31 17:09] LABS: Glucose Point of Care 209 mg/dl (65-105)
--- NOTE | 2021-03-31 17:20 | PCDIET ---
PRN Hydralazine 20 mg ivp given for blood pressure 174/105. Will continue to monitor closely.
--- NOTE | 2021-03-31 18:43 | PC.NURSE ---
Dr. Hernández notified of repeat blood pressure, after prn Hydralazine of 179/92, and patient complaint of intermittent blurry vision. Advised JEISON Cuadra on 3 med/surg as well. Dr. Hernández advised he will make medication adjustments. Will continue to monitor closely.
--- NOTE | 2021-03-31 19:11 | PC.NURSE ---
This patient, Rico Brar, was transferred to [ [id number]] on 03/31/21 at 1850. Personal belongings sent with patient. Report given to [JEISON Barber ]. Appropriate documentation sent with patient.
--- NOTE | 2021-03-31 19:29 | PC.NURSE ---
Transfer received from ICU. Report received from JEISON Amaya.
[2021-03-31] MEDS: FENOFIBRATE NANOCRYSTALLIZED 145 MG TABLET PO (20:25)
[2021-03-31 20:52] LABS: Glucose Point of Care 263 mg/dl (65-105)
[2021-03-31] MEDS: LORATADINE 10 MG TABLET PO (23:01)
[2021-04-01] VITALS (7 sets, daily range): BP systolic 142–169; BP diastolic 72–92; PULSE 82–95; RESP 18–20; TEMP 36.2–36.7; O2SAT 99–100
[2021-04-01] MEDS: HYDROcodone/acetaminophen (*CRX) 5-325 MG TABLET 1 TAB PO (04:55)
[2021-04-01 05:22] LABS: Hematocrit 33.5 % (42.0-52.0); Hemoglobin 10.8 g/dL (14.0-18.0); Mean Corpuscular HGB Conc 32.2 g/dl (32-36); Mean Corpuscular Hemoglobin 27.3 pg (26-34); Mean Corpuscular Volume 84.8 fl (80-100); Mean Platelet Volume 10.4 fl (7.4-10.4); Platelet Count Result 214 k/mm3 (150-375); Red Blood Count 3.95 M/mm3 (4.6-6.20); Red Cell Distribution Width 15.4 % (11.5-14.5); White Blood Count 3.7 K/mm3 (4.5-10.0)
[2021-04-01] MEDS: CENTRAL LINE FLUSH 10 ML IV PUSH (05:44)
[2021-04-01 05:50] LABS: Alanine Aminotransferase 35 U/L (4-50); Albumin Level 3.2 g/dL (3.5-5.1); Alkaline Phosphatase 38 U/L (38-126); Anion Gap 8 mmol/L (8-16); Aspartate Amino Transferase 40 U/L (17-59); Bilirubin,Total 0.8 mg/dL (0.2-1.3); Blood Urea Nitrogen 9 mg/dL (9-20); Calcium 8.7 mg/dL (8.4-10.2); Carbon Dioxide 22 mmol/L (22-30); Chloride 109 mmol/L (98-107); Estimated CRCL calculation 85 ml/min; Estimated Glomerular Filt Rate > 60; Glucose 240 mg/dL (75-110); Lipase 94 U/L (23-300); Magnesium 1.7 mg/dL (1.6-2.3); Phosphorus 3.4 mg/dL (2.5-4.5); Potassium 4.1 mmol/L (3.4-5.0); Sodium 139 mmol/L (137-145)
[2021-04-01] MEDS: INSULIN ASPART (*BKC) 100 UNITS/ML SUB-Q ×3 (08:27→16:50)
[2021-04-01] MEDS: INSULIN GLARGINE (*BKC) 100 UNITS/ML 40 UNITS SUB-Q (08:28)
[2021-04-01] MEDS: metFORMIN HCL 500 MG TABLET PO (08:32)
[2021-04-01] MEDS: amLODIPine BESYLATE 5 MG TABLET 10 MG PO (08:32)
[2021-04-01] MEDS: ATORVASTATIN 20 MG TABLET PO (08:33)
[2021-04-01] MEDS: ENOXAPARIN 40 MG/0.4 ML SYRINGE SUB-Q (08:33)
[2021-04-01] MEDS: FLUTICASONE PROPIONATE 0.05% NA SPR 16 GM BTL (*BKC) 1 SPRAY NASAL ×2 (08:33→20:57)
[2021-04-01 08:36] LABS: Glucose Point of Care 247 mg/dl (65-105)
[2021-04-01] MEDS: carvediloL 12.5 MG TABLET PO ×2 (09:20→20:55)
[2021-04-01 10:44] LABS: Triglycerides 687 mg/dL (<150)
--- NOTE | 2021-04-01 11:06 | PM.PNNEP ---
Progress Note: A&P Assessment and Plan (1) Hypertriglyceridemia: Code(s): E78.1 - Pure hyperglyceridemia Status: Acute Assessment and Plan: The patient had a very high triglyceride level. This is most likely a result of his diabetes, high carb diet, and obesity. he is off the insulin drip. He is on fenofibrate triglyceride down to 687. Will remove the Dylon catheter. (2) BRANDI (acute kidney injury): Code(s): N17.9 - Acute kidney failure, unspecified Status: Acute Assessment and Plan: the patient had an elevated creatinine. Urine electrolytes are non pre renal urine eosinophils are negative UA is bland ultrasound is normal creatinine is down to normal now. Renal will sign off. Please call if any thing else is needed. (3) Loud snoring: Code(s): R06.83 - Snoring Status: Acute Assessment and Plan: The patient has loud snoring. Consider apnea link. The hospitalist handle this. (4) Essential hypertension: Code(s): I10 - Essential (primary) hypertension Status: Acute Assessment and Plan: His blood pressure was fairly high on admission. Dr Quiroz his added some medications. I agree with Cj inhibitors down the line. (5) New onset type 2 diabetes mellitus: Code(s): E11.9 - Type 2 diabetes mellitus without complications Status: Acute Assessment and Plan: The patient's sugars are improving. Subjective Date/time seen: 04/01/21 11:06 Interval history: The patient is feeling better. No belly pain no chest pain or shortness of breath eating some. He does not have a great appetite. Exam Narrative: Exam Narrative: WDWN in NAD skin no rash head ncat lungs clear Bilaterally cor reg no rub abd BS+ nontender and soft ext no edema. Objective Data Vital Signs Vital Signs: Vital Signs - 24 hr 03/31/21 11:14 03/31/21 12:00 03/31/21 14:00 Temperature 36.9 C Pulse Rate 116 H 92 85 Respiratory Rate 18 20 Blood Pressure 153/86 H 149/86 H Pulse Oximetry 98 03/31/21 16:00 03/31/21 19:15 03/31/21 20:00 Temperature 36.8 C Pulse Rate 93 110 H 81 Respiratory Rate 24 H 20 20 Blood Pressure 160/89 H 146/84 H Pulse Oximetry 98 100 98 03/31/21 20:25 03/31/21 22:00 03/31/21 22:10 Temperature 36.9 C Pulse Rate 110 H 81 Respiratory Rate 20 Blood Pressure 160/73 H Pulse Oximetry 99 98 04/01/21 06:00 04/01/21 09:20 Temperature 36.7 C Pulse Rate 95 94 Respiratory Rate 18 Blood Pressure 166/92 H Pulse Oximetry 100 Intake/Output Intake/Output: Intake & Output 03/29/21 03/30/21 03/31/21 04/01/21 23:59 23:59 23:59 23:59 Intake Total 4040 6128 2232 640 Output Total 1850 2050 1700 Balance 2190 4078 532 640 Meds/Results Medications: Active Medications Generic Name Dose Route Start Last Admin Trade Name Freq PRN Reason Stop Dose Admin Acetaminophen 500 mg 03/29/21 11:38 03/31/21 18:25 Acetaminophen 500 Mg Tablet PO 500 mg Q6H PRN Administration Mild Pain (1-3) or Fever Hydrocodone Bitart/Acetaminophen 1 tab 03/30/21 20:45 04/01/21 04:55 Hydrocodone/Acetaminophen (*Crx) 5-325 Mg Tablet PO 1 tab Q6H PRN Administration Pain Rated 4-6 Amlodipine Besylate 10 mg 03/30/21 09:00 04/01/21 08:32 Amlodipine Besylate 5 Mg Tablet PO 10 mg QAM SHARON Administration Atorvastatin Calcium 20 mg 03/31/21 09:00 04/01/21 08:33 Atorvastatin 20 Mg Tablet PO 20 mg DAILY SHARON Administration Carvedilol 12.5 mg 04/01/21 09:00 04/01/21 09:20 Carvedilol 12.5 Mg Tablet PO 12.5 mg Q12HR SHARON Administration Dextrose 12.5 gm 03/31/21 08:08 Dextrose 50% 25 Gm/50 Ml Syringe IV PUSH PRN PRN Hypoglycemia Protocol Enoxaparin Sodium 40 mg 03/29/21 09:00 04/01/21 08:33 Enoxaparin 40 Mg/0.4 Ml Syringe SUB-Q 40 mg DAILY SHARON Administration Fenofibrate 145 mg 07
[2021-04-01] MEDS: NEOMYCIN/POLYMYXIN/BACITRACIN OINTMENT PACKET 1 PACKET (11:54)
[2021-04-01 12:14] LABS: Glucose Point of Care 295 mg/dl (65-105)
--- NOTE | 2021-04-01 13:19 | PM.IMPN ---
Progress Note: A&P Assessment and Plan (1) New onset type 2 diabetes mellitus: Code(s): E11.9 - Type 2 diabetes mellitus without complications Status: Acute Assessment and Plan: Diabetes Education Hemoglobin A1c 11.7 03/31 to medical floor on basal and SSI (2) Hypertriglyceridemia: Code(s): E78.1 - Pure hyperglyceridemia Status: Acute Assessment and Plan: Diabetic control Atorvastatin and fenofibrate Healthy diet Diabetic education Increase physical activity Control weight (3) Elevated troponin: Code(s): R77.8 - Other specified abnormalities of plasma proteins Status: Acute Assessment and Plan: possibly secondary to demand ischemia EKG w/o acute changes (4) Obesity (BMI 30-39.9): Code(s): E66.9 - Obesity, unspecified Status: Acute Assessment and Plan: As above (5) BRANDI (acute kidney injury): Code(s): N17.9 - Acute kidney failure, unspecified Status: Acute Assessment and Plan: Creatinine 1.3 on 03/31 (6) Essential hypertension: Code(s): I10 - Essential (primary) hypertension Status: Acute Assessment and Plan: patient reports that he was started on quinapril and amlodipine Patient started on amlodipine 5 mg q.a.m. given BRANDI will hold off on Cj inhibitors (7) DKA (diabetic ketoacidosis): Qualifiers: Diabetes mellitus complication detail: without coma Diabetes mellitus type: type 2 Qualified Code(s): E11.10 - Type 2 diabetes mellitus with ketoacidosis without coma Code(s): E11.10 - Type 2 diabetes mellitus with ketoacidosis without coma Status: Acute Assessment and Plan: Resolved (8) Loud snoring: Code(s): R06.83 - Snoring Status: Acute Assessment and Plan: NEREIDA vs UAWRS Subjective Date/time seen: 04/01/21 13:19 Interval history: 45-year-old male with past medical history significant for hypertension and obesity presented with weakness and was found to have elevated blood glucose levels. He is being managed as a case of DKA a new onset type 2 diabetes mellitus With A1c elevated to 11.1. He has been managed in the ICU on insulin drip that is now discontinued. He was also noted to have significantly elevated triglyceride levels which were not noted to be improving on insulin drip. Property Administrator 03/30 utilized plasmapheresis. In addition he is also noted to have a BRANDI with possible component of CKD. He is also noted to have uncontrolled hypertension for which he was on amlodipine 5 and quinapril 10 at home. Given his BRANDI is Lisinopril has been held in amlodipine has been increased to 10. this a.m. metoprolol has also been added by ICU slot machine floor person. During his stay he was also noted to have elevated troponin without any EKG changes. This was later seen to trend down. 03/31: Off insulin drip this AM. Feels good. Tolerated diet. Denied cp, sob, edema, gi or gu issues. 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 Has fam hx DM2. 04/01: Tolerating diet. Slight nausea and loose stool with metformin. Review of Systems Review of Systems: All systems reviewed & are unremarkable except as noted in HPI and below Exam Narrative: Exam Narrative: General: no acute distress, obese HEENT: mucous membranes are dry, crowded posterior oropharynx, large neck circumference, pupils are equal and reactive, head is normocephalic atraumatic Respiratory: clear to auscultation bilaterally, no increased work of breathing, intermittent tachypnea Cardiovascular: regular rhythm, normal S1-S2, no murmurs, 2+ bilateral radial pedal pulses Gastrointestinal: obese, nontender, distended, positive bowel sounds Skin: no jaundice, no pallor Musculoskeletal: no clubbing, cyanosis or edema, no foot wounds Neurological: alert and oriented, speech is clear, no facial asymmetry Psychiatric: appropriate mood and affect, cooperative Objective Data Vital Signs Vital Sig
[2021-04-01] MEDS: metFORMIN HCL 500 MG TABLET 1000 MG PO (16:50)
[2021-04-01 16:51] LABS: Glucose Point of Care 295 mg/dl (65-105)
[2021-04-01] MEDS: LORATADINE 10 MG TABLET PO (20:57)
[2021-04-01] MEDS: FENOFIBRATE NANOCRYSTALLIZED 145 MG TABLET PO (20:57)
[2021-04-01 21:33] LABS: Glucose Point of Care 258 mg/dl (65-105)
[2021-04-02] VITALS (8 sets, daily range): BP systolic 134–155; BP diastolic 76–93; PULSE 66–91; RESP 16–18; TEMP 36.1–36.7; O2SAT 98–100
[2021-04-02 06:48] LABS: Hematocrit 34.2 % (42.0-52.0); Hemoglobin 10.9 g/dL (14.0-18.0); Mean Corpuscular HGB Conc 31.9 g/dl (32-36); Mean Corpuscular Hemoglobin 27.2 pg (26-34); Mean Corpuscular Volume 85.3 fl (80-100); Mean Platelet Volume 10.7 fl (7.4-10.4); Platelet Count Result 202 k/mm3 (150-375); Red Blood Count 4.01 M/mm3 (4.6-6.20); Red Cell Distribution Width 14.8 % (11.5-14.5); White Blood Count 2.7 K/mm3 (4.5-10.0)
[2021-04-02 07:18] LABS: Alanine Aminotransferase 43 U/L (4-50); Albumin Level 3.3 g/dL (3.5-5.1); Alkaline Phosphatase 35 U/L (38-126); Anion Gap 6 mmol/L (8-16); Aspartate Amino Transferase 51 U/L (17-59); Bilirubin,Total 0.9 mg/dL (0.2-1.3); Blood Urea Nitrogen 12 mg/dL (9-20); Calcium 8.5 mg/dL (8.4-10.2); Carbon Dioxide 21 mmol/L (22-30); Chloride 111 mmol/L (98-107); Estimated CRCL calculation 91 ml/min; Estimated Glomerular Filt Rate > 60; Glucose 194 mg/dL (75-110); Magnesium 1.8 mg/dL (1.6-2.3); Potassium 4.1 mmol/L (3.4-5.0); Sodium 138 mmol/L (137-145)
[2021-04-02 07:21] LABS: Triglycerides 696 mg/dL (<150)
[2021-04-02 07:33] LABS: Iron 99 ug/dL (49-181)
[2021-04-02 07:42] LABS: Percent Iron Saturation 54 % (20-50)
--- NOTE | 2021-04-02 08:12 | PM.IMPN ---
Progress Note: A&P Assessment and Plan (1) New onset type 2 diabetes mellitus: Code(s): E11.9 - Type 2 diabetes mellitus without complications Status: Acute Assessment and Plan: Diabetes Education Hemoglobin A1c 11.7 Lantus was increased Will add with meal insulin (2) Hypertriglyceridemia: Code(s): E78.1 - Pure hyperglyceridemia Status: Acute Assessment and Plan: Diabetic control continue Atorvastatin and fenofibrate Healthy diet Diabetic education Increase physical activity Control weight (3) Elevated troponin: Code(s): R77.8 - Other specified abnormalities of plasma proteins Status: Acute Assessment and Plan: possibly secondary to demand ischemia EKG w/o acute changes patient denies any chest pain echo reviewed (4) Obesity (BMI 30-39.9): Code(s): E66.9 - Obesity, unspecified Status: Acute Assessment and Plan: As above (5) BRANDI (acute kidney injury): Code(s): N17.9 - Acute kidney failure, unspecified Status: Acute Assessment and Plan: improved and creatinine has come down to 1.2 nephrology has signed off will restart low-dose MOLLY-inhibitor and monitor renal function (6) Essential hypertension: Code(s): I10 - Essential (primary) hypertension Status: Acute Assessment and Plan: blood pressure still elevated. continue amlodipine and increase Coreg dose resume low-dose MOLLY-inhibitor (7) DKA (diabetic ketoacidosis): Qualifiers: Diabetes mellitus complication detail: without coma Diabetes mellitus type: type 2 Qualified Code(s): E11.10 - Type 2 diabetes mellitus with ketoacidosis without coma Code(s): E11.10 - Type 2 diabetes mellitus with ketoacidosis without coma Status: Acute Assessment and Plan: Resolved (8) Loud snoring: Code(s): R06.83 - Snoring Status: Acute Assessment and Plan: NEREIDA vs UAWRS Additional Plan discussed with patient and I answered all questions Subjective Date/time seen: 04/02/21 Overnight events reviewed. Afebrile Patient denies any new complaints today and feels good. he states he is sore all over his from laying in bed which he does not like no other specific complaints all the systems were reviewed and were negative blood pressure and blood sugars are still elevated Interval history: 45-year-old male with past medical history significant for hypertension and obesity presented with weakness and was found to have elevated blood glucose levels. He is being managed as a case of DKA a new onset type 2 diabetes mellitus With A1c elevated to 11.1. He has been managed in the ICU on insulin drip that is now discontinued. He was also noted to have significantly elevated triglyceride levels which were not noted to be improving on insulin drip. Compliance Analyst 03/30 utilized plasmapheresis. In addition he is also noted to have a BRANDI with possible component of CKD. He is also noted to have uncontrolled hypertension for which he was on amlodipine 5 and quinapril 10 at home. Given his BRANDI is Lisinopril has been held in amlodipine has been increased to 10. this a.m. metoprolol has also been added by ICU lead cook. During his stay he was also noted to have elevated troponin without any EKG changes. This was later seen to trend down. 03/31: Off insulin drip this AM. Feels good. Tolerated diet. Denied cp, sob, edema, gi or gu issues. 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 04/01: Tolerating diet. Slight nausea and loose stool with metformin. Review of Systems Review of Systems: All systems reviewed & are unremarkable except as noted in HPI and below ( subjective) Exam Narrative: Exam Narrative: General: no acute distress, obese HEENT: mucous membranes are dry, crowded posterior oropharynx, large neck circumference, pupils are equal and reactive, head is normocephalic atraumatic
[2021-04-02 08:30] LABS: Glucose Point of Care 201 mg/dl (65-105)
[2021-04-02] MEDS: FLUTICASONE PROPIONATE 0.05% NA SPR 16 GM BTL (*BKC) 1 SPRAY NASAL ×2 (08:31→20:23)
[2021-04-02] MEDS: INSULIN ASPART (*BKC) 100 UNITS/ML SUB-Q ×5 (08:31→18:26)
[2021-04-02] MEDS: ENOXAPARIN 40 MG/0.4 ML SYRINGE SUB-Q (08:32)
[2021-04-02] MEDS: amLODIPine BESYLATE 5 MG TABLET 10 MG PO (08:33)
[2021-04-02] MEDS: ATORVASTATIN 20 MG TABLET PO (08:34)
[2021-04-02] MEDS: INSULIN GLARGINE (*BKC) 100 UNITS/ML 50 UNITS SUB-Q (08:38)
[2021-04-02] MEDS: carvediloL 25 MG TABLET PO ×2 (09:20→20:23)
[2021-04-02] MEDS: metFORMIN HCL 500 MG TABLET 1000 MG PO ×2 (09:20→18:04)
[2021-04-02] MEDS: lisinopriL 10 MG TABLET PO (09:20)
[2021-04-02] MEDS: ACETAMINOPHEN 500 MG TABLET PO (11:25)
[2021-04-02 11:40] LABS: Glucose Point of Care 246 mg/dl (65-105)
--- NOTE | 2021-04-02 12:18 | PCNFU ---
Nutrition Follow-Up Complete: Nutrition recommendation: Continue with Diabetic Consistent Carbohydrate diet. Last recorded weight is 125.2 kg. Patient is up 15lbs since admission on 03/29 due to DKA. Bowel Motility: Last documented on 03/31. Labs Reviewed: Hgb(10.9), Hct(34.2), Alb(3.3), Glu(194) Meds Noted:Lovenox, Glucagon, Zofran, Novolog, Lantus, Prinivil, Januvia, Tricor, Metformin, [place], Norvasc, Lipitor, Coreg Additional Notes: Patient's appetite has improved, consuming 75-100% of meals. Agree with diet orders. Patient has no skin issues documented. Patient is planning on discharging tomorrow if everything goes well today. Will follow up in 7 days.
[2021-04-02 13:38] LABS: IFOB Positive Control Positive; Immunochemical Fecal Occult Bl Negative (N)
--- NOTE | 2021-04-02 14:24 | PCNSR ---
On 04/02/21, the student, [Qian Steele], provided care and completed [facility] documentation on this patient. I have reviewed the student's documentation and agree with the findings.
[2021-04-02 18:07] LABS: Glucose Point of Care 157 mg/dl (65-105)
[2021-04-02] MEDS: LORATADINE 10 MG TABLET PO (20:23)
[2021-04-02] MEDS: FENOFIBRATE NANOCRYSTALLIZED 145 MG TABLET PO (20:24)
[2021-04-02 22:35] LABS: Glucose Point of Care 182 mg/dl (65-105)
[2021-04-03 06:00] VITALS: BP 138/78; PULSE 86; RESP 18; TEMP 36.3; O2SAT 99
[2021-04-03 07:02] LABS: Hematocrit 32.7 % (42.0-52.0); Hemoglobin 10.8 g/dL (14.0-18.0); Mean Corpuscular Hemoglobin 27.6 pg (26-34); Mean Corpuscular Volume 83.6 fl (80-100); Mean Platelet Volume 10.4 fl (7.4-10.4); Platelet Count Result 223 k/mm3 (150-375); Red Blood Count 3.91 M/mm3 (4.6-6.20); Red Cell Distribution Width 14.9 % (11.5-14.5); White Blood Count 3.8 K/mm3 (4.5-10.0)
[2021-04-03 07:09] LABS: Alanine Aminotransferase 55 U/L (4-50); Albumin Level 3.2 g/dL (3.5-5.1); Alkaline Phosphatase 56 U/L (38-126); Anion Gap 5 mmol/L (8-16); Aspartate Amino Transferase 53 U/L (17-59); Bilirubin,Total 0.5 mg/dL (0.2-1.3); Blood Urea Nitrogen 15 mg/dL (9-20); Calcium 8.7 mg/dL (8.4-10.2); Carbon Dioxide 25 mmol/L (22-30); Chloride 109 mmol/L (98-107); Estimated CRCL calculation 74 ml/min; Estimated Glomerular Filt Rate > 60; Glucose 161 mg/dL (75-110); Magnesium 1.7 mg/dL (1.6-2.3); Phosphorus 4.5 mg/dL (2.5-4.5); Potassium 3.8 mmol/L (3.4-5.0); Sodium 139 mmol/L (137-145)
[2021-04-03 07:44] LABS: Glucose Point of Care 180 mg/dl (65-105)
[2021-04-03] MEDS: ENOXAPARIN 40 MG/0.4 ML SYRINGE SUB-Q (08:24)
[2021-04-03] MEDS: FLUTICASONE PROPIONATE 0.05% NA SPR 16 GM BTL (*BKC) 1 SPRAY NASAL (08:24)
[2021-04-03 08:25] VITALS: PULSE 86
[2021-04-03] MEDS: metFORMIN HCL 500 MG TABLET 1000 MG PO (08:25)
[2021-04-03] MEDS: INSULIN GLARGINE (*BKC) 100 UNITS/ML 50 UNITS SUB-Q (08:25)
[2021-04-03] MEDS: ATORVASTATIN 20 MG TABLET PO (08:25)
[2021-04-03] MEDS: lisinopriL 10 MG TABLET PO (08:25)
[2021-04-03] MEDS: carvediloL 25 MG TABLET PO (08:25)
[2021-04-03] MEDS: amLODIPine BESYLATE 5 MG TABLET 10 MG PO (08:25)
[2021-04-03] MEDS: INSULIN ASPART (*BKC) 100 UNITS/ML SUB-Q ×2 (08:28→13:44)
[2021-04-03 13:07] LABS: Glucose Point of Care 138 mg/dl (65-105)
[2021-04-03 14:00] VITALS: BP 148/81; PULSE 90; RESP 20; TEMP 36.1; O2SAT 100
--- NOTE | 2021-04-03 14:43 | PM.DS ---
DS: Admitting Diagnosis Admitting Diagnosis Admitting Diagnosis: Diabetic ketoacidosis DS: Discharge Diagnosis Discharge Diagnosis (1) New onset type 2 diabetes mellitus: Code(s): E11.9 - Type 2 diabetes mellitus without complications Status: Acute Assessment and Plan: Diabetes Education Hemoglobin A1c 11.7 the patient initially was placed on insulin drip. nurse educator spoke with the patient. The patient was started on metformin and glyburide. Patient was also started on Lantus and aspart 3 times a day. The patient stated that he is educated on how to give himself injections and feels comfortable giving himself injections. (2) Hypertriglyceridemia: Code(s): E78.1 - Pure hyperglyceridemia Status: Acute Assessment and Plan: Diabetic control Atorvastatin and fenofibrate Healthy diet Diabetic education Increase physical activity Control weight (3) Elevated troponin: Code(s): R77.8 - Other specified abnormalities of plasma proteins Status: Acute Assessment and Plan: possibly secondary to demand ischemia EKG w/o acute changes (4) Obesity (BMI 30-39.9): Code(s): E66.9 - Obesity, unspecified Status: Acute Assessment and Plan: As above (5) BRANDI (acute kidney injury): Code(s): N17.9 - Acute kidney failure, unspecified Status: Acute Assessment and Plan: Creatinine 1.3 on 03/31 Encourage the patient to drink plenty of water and to keep his blood sugars under co (6) Essential hypertension: Code(s): I10 - Essential (primary) hypertension Status: Acute Assessment and Plan: patient reports that he was started on quinapril and amlodipine Patient started on amlodipine 5 mg q.a.m. given BRANDI will hold off on Cj inhibitors (7) DKA (diabetic ketoacidosis): Qualifiers: Diabetes mellitus complication detail: without coma Diabetes mellitus type: type 2 Qualified Code(s): E11.10 - Type 2 diabetes mellitus with ketoacidosis without coma Code(s): E11.10 - Type 2 diabetes mellitus with ketoacidosis without coma Status: Acute Assessment and Plan: Resolved . The patient is to follow-up with his primary care doctor in 1-2 weeks. 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 He will need to have Lantus continued until he can get better control of his blood sugars. I spoke with my collaborative who explained that the patient should continue with the Lantus during the night and play follows up with his primary care doctor. (8) Loud snoring: Code(s): R06.83 - Snoring Status: Acute Assessment and Plan: NEREIDA vs UAWRS . The patient will need to follow-up with sleep study for a CPAP machine. DS: Summary Hospital Course Hospital Course: This is a 45-year-old male patient has a past medical history of obesity and hypertension. Patient checked his blood sugars outpatient found that there were to be high. Patient had 10 days of increased urination, fatigue and dry mouth. He also had blurred vision and loss of appetite. The patient has been drinking water and Gatorade. 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 He has not seen a primary care doctor in several years. He was going to make a appointment with physician at [place] but had not gotten into him as of yet. Patient did not have any nausea vomiting. The patient was placed in ICU on insulin drip. His initial blood sugars were greater than 500. initial troponin was elevated but was thought to be heart strain from elevated blood sugar. His A1c was noted to be 11.7. His Lantus was increased. Patient was placed on short-acting insulin 3 times a day. The patient was instructed on how to give himself insulin. 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 The patient was started on metformin and Januvia. The patien
== END 2021-04-03 16:05 | disposition home or self-care (01) | DRG 420 ==
LOC: ANHED 03-29 00:45 → ANHICU 03-29 07:01 → ANH3MEDSUR 04-01 00:08 → ANHICU 04-04 15:48
PROVIDERS: Internal Medicine; Internal Medicine Nephrology; Admitting Provider Internal Medicine; Emergency Provider Family Medicine; PCP Internal Medicine; Visit Provider Internal Medicine
DX: E11.10 Type 2 diabetes mellitus with ketoacidosis without coma (principal); N17.9 Acute kidney failure, unspecified; E78.1 Pure hyperglyceridemia; R77.8 Other specified abnormalities of plasma proteins; E66.9 Obesity, unspecified; Z68.39 Body mass index [BMI] 39.0-39.9, adult; I10 Essential (primary) hypertension; R06.83 Snoring; Z83.3 Family history of diabetes mellitus; Z79.899 Other long term (current) drug therapy; Z88.0 Allergy status to penicillin
CPT/HCPCS: 36415; 36514; 36600; 76775; 80048; 80053; 80061; 81001; 82010; 82274; 82550; 82570; 82805; 82947; 82948; 83036; 83540; 83550; 83605; 83690; 83735; 84100; 84156; 84300; 84443; 84478; 84484; 85025; 85027; 85610; 85730; 85999; 93005; 94660; 94762; 96361; 96374; 96375; 99285; A9270; C1752; C8929; J0360; J0610; J1644; J1650; J1815; J2405; J3010; J3480; J7030; J7120; P9047; Q9957